=== PATIENT | female | born 1960 | race Caucasian/White ===

== ENCOUNTER 2019-09-27 07:39 | Outpatient (CLI) | payer SELFPAY ==
[2019-10-02 04:23] LABS: SARS-CoV-2 RNA Undetected (Undetected); SARS-CoV-2 Specimen Source Nasopharynx
== END 2019-09-27 07:59 ==
PROVIDERS: Visit Provider Family Medicine
DX: Z11.59 Encounter for screening for other viral diseases (principal)
CPT/HCPCS: U0003